=== PATIENT | female | born 1940 | race Caucasian/White ===

== ENCOUNTER → 2019-10-31 | Outpatient (CLI) | payer MEDICARE, OTHER ==
[~2019-10-31] MED LIST: ASPI81TA86 PO; CRES5TAB PO; ECOT325T5 PO; LISI20TA33 PO
--- NOTE | 2019-10-31 14:16 | REP ---
LEFT FOOT, FOUR VIEWS: There is no evidence of an acute fracture, dislocation or intrinsic bone disease. There is mild posterior calcaneal spurring. IMPRESSION: No fracture or dislocation. Electronically Signed by Deric Bradley MD 10/31/2019 02:47 P
== END ==
LOC: M WUC 12:42
PROVIDERS: ATTEND Nurse Practitioner Family
DX: M79.672 Pain in left foot (principal)

== ENCOUNTER → 2021-01-25 | Outpatient (CLI) | payer OTHER ==
[~2021-01-25] MED LIST changes: +PROHANCE 279.3MG/ML 5ML VIAL As Ordered ONE
--- NOTE | 2021-01-25 12:11 | REPVR ---
PROCEDURE INFORMATION: Exam: MRA Head Without Contrast; Arteriography Exam date and time: 01/25/2021 11:55 AM Age: 80 years old Clinical indication: Pain; Headache; Patient HX: Schumacher's w/ slurred speech TECHNIQUE: Imaging protocol: Magnetic resonance angiography head without contrast. Exam focused on the arteries. COMPARISON: CT Maxilofacial w/out contrast 10/03/2014 9:00 AM FINDINGS: ANTERIOR CIRCULATION: Right internal carotid artery: Intracranial segment is patent with no significant stenosis. No aneurysm. Right middle cerebral artery: No occlusion or significant stenosis. No aneurysm. Right anterior cerebral artery: No occlusion or significant stenosis. No aneurysm. Left internal carotid artery: Intracranial segment is patent with no significant stenosis. No aneurysm. Left middle cerebral artery: No occlusion or significant stenosis. No aneurysm. I favor small infundibulum at the origin of the left posterior communicating artery rather than an aneurysm. Left anterior cerebral artery: No occlusion or significant stenosis. No aneurysm. POSTERIOR CIRCULATION: Right vertebral artery: No occlusion or significant stenosis. No aneurysm. Left vertebral artery: No occlusion or significant stenosis. No aneurysm. Basilar artery: No occlusion or significant stenosis. No aneurysm. Right posterior cerebral artery: No occlusion or significant stenosis. No aneurysm. Left posterior cerebral artery: No occlusion or significant stenosis. No aneurysm. IMPRESSION: No stenosis or occlusion. Electronically signed by: Selwyn Shetty On 01/25/2021 12:11:15 PM
--- NOTE | 2021-01-25 12:16 | REPVR ---
PROCEDURE INFORMATION: Exam: MR Head Without and With Contrast Exam date and time: 01/25/2021 11:55 AM Age: 80 years old Clinical indication: Pain; Headache; Tension; Patient HX: Schumacher's w/ slurred speech TECHNIQUE: Imaging protocol: MR of the head without and with intravenous contrast. Contrast material: PROHANCE; Contrast volume: 9 ml; Contrast route: INTRAVENOUS (IV); COMPARISON: CT Maxilofacial w/out contrast 10/03/2014 9:00 AM FINDINGS: Brain: I see no acute hemorrhage or acute territorial infarct. Moderate diffuse involutional changes are present in the brain for age. Mild T2 and FLAIR hyperintensities in the white matter suggest mild small vessel disease. Questionable focus of restricted diffusion in the center of the midbrain, an unusual location for an acute infarct. This may be related to the normal signal abnormalities related to the cortical tracks present in this region, but it is more pronounced than normally seen. No real edema here on the FLAIR images. Clinical correlation and follow-up suggested here. The expected vascular flow voids are present centrally. No abnormal enhancement in the brain. Cerebral ventricles: Normal. No ventriculomegaly. Bones/joints: Unremarkable. Paranasal sinuses: Limited paranasal sinus disease. Mastoid air cells: The mastoids are well aerated. Orbital cavity: The orbits are intact. Soft tissues: Unremarkable. IMPRESSION: 1. Chronic appearing changes in the brain without acute hemorrhage or acute territorial infarct. 2. No abnormal enhancement. 3. Signal abnormalities in the center of the midbrain, as described. Electronically signed by: Selwyn Shetty On 01/25/2021 12:15:48 PM
--- NOTE | 2021-01-25 12:28 | REP ---
INDICATION: FENTON'S W/ SLURRED SPEECH- MRI FIRST. COMPARISON: None. TECHNIQUE: Bilateral carotid artery duplex ultrasound. FINDINGS: Peak flow velocities: Right left Internal carotid artery 35.0 cm/sec 31.8 cm/sec Int. Carotid diastolic 9.8 cm/sec 16.4 cm/sec External carotid artery 40.5 cm/sec 5052.9 cm/sec Common carotid artery 73.0 cm/sec : 87.4 cm/sec ICA-CCA ratio 0.71 1.33 The distal right internal carotid artery is not visualized as it dives deep. There is intimal thickening bilaterally. The peak flow velocities are normal bilaterally. No stenoses are identified on the right or the left. There is antegrade flow in the vertebral arteries bilaterally. IMPRESSION: No stenoses are identified on the right or the left. The distal right ICA dives deep and could not be visualized <Electronically signed by Deric Petersen > 01/25/21 [id number]
== END ==
LOC: M RAD 09:44
PROVIDERS: ATTEND Family Medicine
DX: R47.81 Slurred speech (principal); R51.9 Headache, unspecified
CPT/HCPCS: 70544; 70553; 93880; A9576

== ENCOUNTER → 2021-03-31 | Outpatient (CLI) | payer OTHER, MEDICARE ==
[~2021-03-31] MED LIST changes: -PROHANCE 279.3MG/ML 5ML VIAL As Ordered ONE
[2021-03-31 13:52] LABS: BASO # 0.1 10^3/uL (0.0-0.2); BASO % 1.1 % (0.0-1.0); EOS # 0.1 10^3/uL (0.0-0.5); EOS % 2.4 % (0.0-3.0); HEMATOCRIT 38.3 % (36.0-47.0); HEMOGLOBIN 12.6 g/dl (12.0-15.5); LYMPH % 37.1 % (24.0-44.0); MEAN CORPUSCULAR HEMOGLOBIN 32.1 pg (27.0-33.0); MEAN CORPUSCULAR HGB CONC 32.9 g/dl (32.0-36.5); MEAN CORPUSCULAR VOLUME 97.5 fl (80.0-96.0); MONO # 0.4 10^3/uL (0.0-0.8); MONO % 7.9 % (2.0-8.0); NEUTROPHILS # 2.7 10^3/uL (1.5-8.5); NEUTROPHILS % 51.3 % (36.0-66.0); PLATELET COUNT, AUTOMATED 323 10^3/uL (150-450); RED BLOOD COUNT 3.93 10^6/uL (4.00-5.40); WHITE BLOOD COUNT 5.3 10^3/uL (4.0-10.0)
[2021-03-31 14:27] LABS: ERYTHROCYTE SEDIMENTATION RATE 6 mm/hr (0-30)
[2021-03-31 14:31] LABS: ALT/SGPT 24 U/L (12-78); BILIRUBIN,TOTAL 0.6 MG/DL (0.2-1.0); BLOOD UREA NITROGEN 12 MG/DL (7-18); CALCIUM LEVEL 9.3 MG/DL (8.8-10.2); CARBON DIOXIDE LEVEL 28 MEQ/L (21-32); CHLORIDE LEVEL 103 MEQ/L (98-107); CREATININE FOR GFR 0.72 MG/DL (0.55-1.30); GLOMERULAR FILTRATION RATE > 60.0 (>39); GLUCOSE, FASTING 92 MG/DL (70-100); POTASSIUM SERUM 3.9 MEQ/L (3.5-5.1); RHEUMATOID FACTOR QUANT < 10.0 IU/ML (<15.0); SODIUM LEVEL 137 MEQ/L (136-145); THYROID STIMULATING HORMONE 0.874 uIU/ML (0.358-3.740); VITAMIN B12 LEVEL 400 PG/ML
[2021-03-31 14:33] LABS: FOLATE 21.7 NG/ML
[2021-04-01 14:13] LABS: ALBUMIN % 67.1 % (55.8-66.1); ALPHA-1-GLOBULIN % 3.8 % (2.9-4.9); ALPHA-1-GLOBULINS 0.27 GM/DL (0.17-0.41); ALPHA-2-GLOBULINS 0.69 GM/DL (0.42-0.99); ALPHA-2-GLOBULINS % 9.8 % (7.1-11.8); BETA-1-GLOBULINS 0.44 GM/DL (0.28-0.60); BETA-1-GLOBULINS % 6.3 % (4.7-7.2); BETA-2-GLOBULINS 0.23 GM/DL (0.19-0.55); BETA-2-GLOBULINS % 3.3 % (3.2-6.5); GAMMA GLOBULIN % 9.7 % (11.1-18.8); GAMMA GLOBULINS 0.68 GM/DL (0.65-1.58)
== END ==
LOC: M PLALAB 11:08
PROVIDERS: ATTEND Psychiatry & Neurology Neurology
DX: R47.81 Slurred speech (principal)

== ENCOUNTER → 2021-05-02 | Outpatient (CLI) | payer OTHER, MEDICARE ==
[2021-05-02 16:15] LABS: BASO # 0.1 10^3/uL (0.0-0.2); BASO % 1.1 % (0.0-1.0); EOS # 0.1 10^3/uL (0.0-0.5); HEMATOCRIT 38.8 % (36.0-47.0); HEMOGLOBIN 12.8 g/dl (12.0-15.5); LYMPH # 1.7 10^3/uL (1.5-5.0); LYMPH % 31.5 % (24.0-44.0); MEAN CORPUSCULAR HEMOGLOBIN 31.9 pg (27.0-33.0); MEAN CORPUSCULAR VOLUME 96.8 fl (80.0-96.0); MONO # 0.5 10^3/uL (0.0-0.8); MONO % 8.4 % (2.0-8.0); NEUTROPHILS # 3.1 10^3/uL (1.5-8.5); NEUTROPHILS % 56.6 % (36.0-66.0); PLATELET COUNT, AUTOMATED 307 10^3/uL (150-450); RED BLOOD COUNT 4.01 10^6/uL (4.00-5.40); WHITE BLOOD COUNT 5.5 10^3/uL (4.0-10.0)
[2021-05-02 16:34] LABS: ALBUMIN 4.2 GM/DL (3.2-5.2); ALT/SGPT 22 U/L (12-78); BILIRUBIN,TOTAL 0.6 MG/DL (0.2-1.0); BLOOD UREA NITROGEN 9 MG/DL (7-18); CARBON DIOXIDE LEVEL 28 MEQ/L (21-32); CHLORIDE LEVEL 105 MEQ/L (98-107); CHOLESTEROL LEVEL 163 MG/DL (<200); CHOLESTEROL RISK RATIO 1.455 (<5); CREATININE FOR GFR 0.68 MG/DL (0.55-1.30); GLOMERULAR FILTRATION RATE > 60.0 (>39); GLUCOSE, FASTING 102 MG/DL (70-100); HDL CHOLESTEROL 112 MG/DL (>40); LDL CHOLESTEROL 44 MG/DL (<100); NON-HDL-C 51 MG/DL; POTASSIUM SERUM 5.3 MEQ/L (3.5-5.1); SODIUM LEVEL 137 MEQ/L (136-145); TOTAL PROTEIN 6.9 GM/DL (6.4-8.2); TRIGLYCERIDES LEVEL 37 MG/DL (<150)
== END ==
LOC: M PLALAB 12:15
PROVIDERS: ATTEND Family Medicine
DX: I10 Essential (primary) hypertension (principal)

== ENCOUNTER 2023-05-25 09:01 | Outpatient (RCR) | payer OTHER, MEDICARE | END 2023-06-17 | LOC: M ST 09:01 | PROVIDERS: ATTEND Psychiatry & Neurology Neurology | DX: R47.81 Slurred speech (principal) ==

== ENCOUNTER → 2024-08-18 | Outpatient (CLI) | payer OTHER, MEDICARE ==
[~2024-08-18] MED LIST changes: +ISOVUE-370 76% 100ML VIAL As Ordered ONE
== END ==
LOC: M RAD 13:45
PROVIDERS: ATTEND Otolaryngology
DX: R49.0 Dysphonia (principal)